=== PATIENT | female | born 1955 | race Asian ===

== ENCOUNTER 2016-12-05 06:28 | Inpatient (IN) | payer SELFPAY ==
[~2016-12-05] VITALS: Ht 160 cm; Wt 74.8 kg
[2016-12-05] VITALS (10 sets, daily range): BP systolic 100–118; BP diastolic 49–62; PULSE 80–111; RESP 16–18; TEMP 96.7–99; O2SAT 95–100
[2016-12-05] MEDS ORDERED: AMLO10TA2 PO (06:39)
[2016-12-05] MEDS ORDERED: LISI10TA3 PO (06:39)
--- NOTE | 2016-12-05 07:36 | PD ---
HPI Chief Complaint: GI Complaint Time Seen by Provider: 07:14 Travel History International Travel<30 days: No Contact w/Intl Traveler<30days: No Traveled to known affect area: No History of Present Illness HPI 61-year-old female came to the emergency room with history of epigastric pain for past 1 week. For past 3 days she has noticed dark color stool. She has had 4 or 5 episodes of such. She has been lightheaded and dizzy as well. Her daughter who is an employee here convinced her to come to the emergency room to be checked out. Patient recently immigrated from [facility] in 2016. She has never had an endoscopy or colonoscopy done in the past. She did have history of peptic ulcer disease in the past. Patient has history of arthritis and was taking Aleve up until one month ago. Currently she is not on any blood thinners. She told me that her blood pressure is lower than what it usually is. She is awake and answering questions appropriately. PFSH Past Medical History Narrative Medical List of her past medical, surgical, social and family history was reviewed from the nursing note. Diminished Hearing: No Hypertension: Yes Medical other: Yes (STOMACH ULCERS ) Past Surgical History Surgical History: No Previous Surgery Social History Alcohol Use: No Tobacco Use: No Substance Use: No Allergies-Medications (Allergen,Severity, Reaction): Coded Allergies: No Known Allergies (Unverified , 12/05/16) Comments No known drug allergies. Reported Meds & Prescriptions Reported Meds & Active Scripts Active Reported Amlodipine (Amlodipine Besylate) 10 Mg Tab 10 Mg PO DAILY Lisinopril 10 Mg Tab 10 Mg PO DAILY Narrative Medication List of her home medications reviewed from the nursing note. Review of Systems Except as stated in HPI: all other systems reviewed are Neg Physical Exam Narrative GENERAL: Awake, alert, moderate distress SKIN: Focused skin assessment warm/dry. HEAD: Atraumatic. Normocephalic. EYES: Pupils equal and round. No scleral icterus. No injection or drainage. ENT: No nasal bleeding or discharge. Mucous membranes pink and moist. NECK: Trachea midline. No JVD. CARDIOVASCULAR: Regular rate and rhythm. No murmur appreciated. RESPIRATORY: No accessory muscle use. Clear to auscultation. Breath sounds equal bilaterally. GASTROINTESTINAL: Abdomen soft, non-tender, nondistended. Hepatic and splenic margins not palpable. MUSCULOSKELETAL: No obvious deformities. No clubbing. No cyanosis. No edema. NEUROLOGICAL: Awake and alert. No obvious cranial nerve deficits. Motor grossly within normal limits. Normal speech. PSYCHIATRIC: Appropriate mood and affect; insight and judgment normal. Data Data Last Documented VS Vital Signs Date Time Temp Pulse Resp B/P Pulse Ox O2 Delivery O2 Flow Rate FiO2 12/05/16 06:30 97.7 111 18 118/59 100 Room Air Orders Electrocardiogram (12/05/16 06:47) Complete Blood Count With Diff (12/05/16 07:41) Comprehensive Metabolic Panel (12/05/16 07:41) Lipase (12/05/16 07:41) Prothrombin Time / Inr (Pt) (12/05/16 07:41) Urinalysis - C+S If Indicated (12/05/16 07:41) Iv Access Insert/Monitor (12/05/16 07:41) Ecg Monitoring (12/05/16 07:41) Oximetry (12/05/16 07:41) Morphine Inj (Morphine Inj) (12/05/16 07:45) Ondansetron Inj (Zofran Inj) (12/05/16 07:45) Pantoprazole Inj (Protonix Inj) (12/05/16 07:45) Sodium Chlor 0.9% 1000 Ml Inj (Ns 1000 M (12/05/16 07:41) Sodium Chloride 0.9% Flush (Ns Flush) (12/05/16 07:45) Type And Screen (12/05/16 07:41) Pantoprazole Inj (Protonix Inj) (12/05/16 10:15) Pantoprazole Inj (Protonix Inj) (12/05/16 10:15) Vital Signs (Adult) [id number].Q4H (12/05/16 09:16) Sodium Chloride 0.9% Flush (Ns Flush) (12/05/16 09:30) Sodium Chloride 0.9% Flush (Ns Flush) (12/05/16 09:30) Admit Order (Ed Use Only) (12/05/16 09:04) Labs Laboratory Tests Test 12/05/16 12/05/16 07:00 09:00 White Blood Count 16.6 TH/MM3 Red Blood Count 3.49 MIL/MM3 Hemoglobin 9.7 GM/DL Hematocrit 29.5 % Mean Corpuscular Volume 84.7 FL Mean Corpuscular Hemoglobin 27.9 PG Mean Corpuscular Hemoglobin 32.9 % Concent Red Cell Distribution Width 14.5 % Platelet Count 319 TH/MM3 Mean Platelet Volume 8.2 FL Neutrophils (%) (Auto) 75.6 % Lymphocytes (%) (Auto) 18.6 % Monocytes (%) (Auto) 4.2 % Eosinophils (%) (Auto) 1.1 % Basophils (%) (Auto) 0.5 % Neutrophils # (Auto) 12.6 TH/MM3 Lymphocytes # (Auto) 3.1 TH/MM3 Monocytes # (Auto) 0.7 TH/MM3 Eosinophils # (Auto) 0.2 TH/MM3 Basophils # (Auto) 0.1 TH/MM3 CBC Comment DIFF FINAL Differential Comment Prothrombin Time 10.4 SEC Prothromb Time International 0.9 RATIO Ratio Sodium Level 143 MEQ/L Potassium Level 3.8 MEQ/L Chloride Level 107 MEQ/L Carbon Dioxide Level 26.4 MEQ/L Anion Gap 10 MEQ/L Blood Urea Nitrogen 47 MG/DL Creatinine 0.98 MG/DL Estimat Glomerular Filtration 57 ML/MIN Rate Random Glucose 128 MG/DL Calcium Level 9.0 MG/DL Total Bilirubin 0.3 MG/DL Aspartate Amino Transf 12 U/L (AST/SGOT) Alanine Aminotransferase 24 U/L (ALT/SGPT) Alkaline Phosphatase 52 U/L Total Protein 7.8 GM/DL Albumin 3.7 GM/DL Lipase 122 U/L Blood Type O POSITIVE Antibody Screen NEGATIVE Blood Bank Comment Urine Color LIGHT-YELLOW Urine Turbidity CLEAR Urine pH 5.5 Urine Specific [place] 1.013 Urine Protein NEG mg/dL Urine Glucose (UA) NEG mg/dL Urine Ketones NEG mg/dL Urine Occult Blood NEG Urine Nitrite NEG Urine Bilirubin NEG Urine Urobilinogen LESS THAN 2.0 MG/DL Urine Leukocyte Esterase MOD Urine RBC 1 /hpf Urine WBC 7 /hpf Urine Squamous Epithelial 1 /hpf Cells Microscopic Urinalysis Comment CULT NOT INDICATED MDM Medical Decision Making Medical Screen Exam Complete: Yes Emergency Medical Condition: Yes Medical Record Reviewed: Yes Interpretation(s) Twelve-lead EKG was reviewed by me. Normal sinus rhythm, normal axis, tachycardia, nonspecific ST-T wave changes. Heart rate of 105 bpm. Differential Diagnosis Upper GI bleed, lower GI bleed, acute pancreatitis Narrative Course 9 AM patient was given IV Protonix bolus and a drip. She was medicated for pain. Blood test results of back and while H&H is low and she doesn't require to be transfused yet. I admitted the patient to the family medicine team for endoscopy and possibly colonoscopy. Patient is aware of this plan and okay with it. Critical Care Narrative Aggregate critical care time was 30 minutes. Time to perform other separately billable procedures was not included in the critical care time. My time did not include minutes spent treating any other patients simultaneously or on activities that did not directly contribute to the patient's treatment. The services I provided to this patient were to treat and/or prevent clinically significant deterioration that could result in: GI bleed, Protonix drip I provided critical care services requiring my management, as noted below: Chart data review, documentation time, medication orders and management, vital sign assessments/reviewing monitor data, ordering and reviewing lab tests, ordering and interpreting/reviewing x-rays and diagnostic studies, care of the patient and discussion of the patient with the admitting physicians. Procedures EKG Prior to Arrival: No HemaPrompt Point of Care Internal Pos. & Neg. Controls: Passed Fecal Specimen Occult Blood: Positive Diagnosis Primary Impression: GI bleed Qualified Code: K92.2 - Gastrointestinal hemorrhage, unspecified gastrointestinal hemorrhage type Additional Impression: Epigastric pain Admitting Information Admitting Physician Requests: Admit Scripts Pantoprazole 40 Mg Tab40 Mg PO DAILY #30 TAB Ref 0 Prov:Deacon Jolley MD R2 12/07/16 Diamond Gibson MD Dec 05, 2016 07:36
[2016-12-05] MEDS ORDERED: SODIUM CHLOR 0.9% 1000 ML INJ 1,000 ML IV SCH (07:41)
[2016-12-05] MEDS ORDERED: ONDANSETRON HCL 4 MG/2 ML VIAL IVP ONE (07:45)
[2016-12-05] MEDS ORDERED: PANTOPRAZOLE SODIUM 40 MG VIAL IVP ONE (07:45)
[2016-12-05] MEDS ORDERED: SODIUM CHLORIDE 0.9% FLUSH 10 ML FLUSH IV FLUSH PRN ×3 (07:45→09:45)
[2016-12-05] MEDS ORDERED: MORPHINE SULFATE 4 MG/ML INJ IV PUSH ONE (07:45)
[2016-12-05 08:16] LABS: AUTOMATED NEUTROPHIL # 12.6 TH/MM3 (1.8-7.7); BASOPHIL # 0.1 TH/MM3 (0-0.2); BASOPHIL % 0.5 % (0.0-2.0); EOSINOPHIL # 0.2 TH/MM3 (0-0.4); EOSINOPHIL % 1.1 % (0.0-4.0); HEMATOCRIT 29.5 % (35.0-46.0); HEMO FLAGS DIFF FINAL; LYMPH % 18.6 % (9.0-44.0); LYMPHOCYTE # 3.1 TH/MM3 (1.0-4.8); MEAN CELL VOLUME 84.7 FL (80.0-100.0); MEAN CORPUSCULAR HEMOGLOBIN 27.9 PG (27.0-34.0); MEAN CORPUSCULAR HGB CONC 32.9 % (32.0-36.0); MONO % 4.2 % (0.0-8.0); NEUT % 75.6 % (16.0-70.0); PLATELET COUNT 319 TH/MM3 (150-450); RED BLOOD COUNT 3.49 MIL/MM3 (4.00-5.30); RED CELL DISTRIBUTION WIDTH 14.5 % (11.6-17.2); WHITE BLOOD COUNT 16.6 TH/MM3 (4.0-11.0)
[2016-12-05 08:23] LABS: INTERNATIONAL NORMALIZED RATIO 0.9 RATIO; PROTHROMBIN TIME - PATIENT 10.4 SEC (9.8-11.6)
[2016-12-05 08:33] LABS: ALT (GPT) 24 U/L (10-53); ANION GAP 10 MEQ/L (5-15); AST (GOT) 12 U/L (15-37); BICARBONATE 26.4 MEQ/L (21.0-32.0); BLOOD UREA NITROGEN 47 MG/DL (7-18); CHLORIDE 107 MEQ/L (98-107); GLOMERULAR FILTRATION RATE 57 ML/MIN (>89); POTASSIUM 3.8 MEQ/L (3.5-5.1); SODIUM (NA) 143 MEQ/L (136-145)
[2016-12-05 08:35] LABS: ALKALINE PHOSPHATASE 52 U/L (45-117); TOTAL BILIRUBIN ADULT 0.3 MG/DL (0.2-1.0)
--- NOTE | 2016-12-05 09:18 | HHI.HP ---
HPI Service Family Medicine Primary Care Physician Non-Staff Admission Diagnosis GI bleed, abdominal pain, leukocytosis Diagnoses: International Travel<30 Days: No Contact w/Intl Traveler<30days: No Known Affected Area: No History of Present Illness Patient is a pleasant 61-year-old female, with a past medical history of hypertension and peptic ulcer disease, presenting with generalized weakness and fatigue for 1 week. HPI: Approximately 1 week ago, she experienced generalized weakness. 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 On 12/05, at 4 AM she called her daughter because she was feeling lightheaded and extremely dizzy. She also notices over the past 3 days, that she has been having black, tarry stools, that are formed. She also feels nauseous, but denies any vomiting. She denies bright red blood in her stool. She denies any chest pain currently. She denies any shortness of breath. She has not fallen at home. She has been taking Aleve, large amounts every day ( she bought a big bottle at [employer] and takes them throughout the day) for arthritic pain. She has a history of peptic ulcer disease, approximately 40 years ago, she did have an upper GI bleed. Currently, she is not having any abdominal pain. She denies any fevers or chills. She is not on any blood thinners. (Deacon Jolley MD R2) Review of Systems Constitutional: COMPLAINS OF: Fatigue, Chills, Dizziness, Change in appetite, DENIES: Diaphoretic episodes, Fever Eyes: DENIES: Blurred vision, Vision loss, Double Vision Ears, nose, mouth, throat: COMPLAINS OF: Vertigo Respiratory: DENIES: Cough, Sputum production, Shortness of breath Cardiovascular: DENIES: Chest pain, Palpitations, Syncope Gastrointestinal: COMPLAINS OF: Black stools, Nausea, Anorexia, DENIES: Abdominal pain, Constipation, Diarrhea, Vomiting, Difficulty Swallowing Genitourinary: DENIES: Urgency, Dysuria Integumentary: COMPLAINS OF: Rash (left upper quadrant red nodule on abdomen) ( Deacon Jolley MD R2) Past Family Social History Past Medical History Essential hypertension Peptic ulcer disease Past Surgical History Denies any previous surgeries (Deacon Jolley MD R2) Allergies: Coded Allergies: No Known Allergies (Unverified , 12/05/16) Family History Denies a family history of stomach cancer, colon cancer, or inflammatory bowel disease. Social History Lives with her . Her daughter works in [employer]. She does not drink alcohol, smoke tobacco, or do illicit drugs. Originally from the [facility]. Limited [place] proficiency. (Deacon Jolley MD R2) Physical Exam Vital Signs Vital Signs Date Time Temp Pulse Resp B/P Pulse Ox O2 Delivery O2 Flow Rate FiO2 12/05/16 06:30 97.7 111 18 118/59 100 Room Air Physical Exam GENERAL: REsting comfortably appears tired. SKIN: No rashes, ecchymoses or lesions. Cool and dry. Small erythematous nodule on LUQ of abdomen, not draining. HEAD: Atraumatic. Normocephalic. No temporal or scalp tenderness. EYES: Pupils equal round and reactive. +Scleral palor ENT: Nose without bleeding, purulent drainage or septal hematoma. Throat without erythema, tonsillar hypertrophy or exudate. Uvula midline. Airway patent. NECK: Trachea midline. No JVD or lymphadenopathy. Supple, nontender, no meningeal signs. CARDIOVASCULAR: Regular rate and rhythm without murmurs, gallops, or rubs. RESPIRATORY: Clear to auscultation. Breath sounds equal bilaterally. No wheezes , rales, or rhonchi. GASTROINTESTINAL: Abdomen soft, non-tender, slightly distended. No guarding. MUSCULOSKELETAL: Extremities without clubbing, cyanosis, or edema. NEUROLOGICAL: Awake and alert. Cranial nerves II through XII intact. Laboratory Laboratory Tests Test 12/05/16 07:00 White Blood Count 16.6 Red Blood Count 3.49 Hemoglobin 9.7 Hematocrit 29.5 Mean Corpuscular Volume 84.7 Mean Corpuscular Hemoglobin 27.9 Mean Corpuscular Hemoglobin 32.9 Concent Red Cell Distribution Width 14.5 Platelet Count 319 Mean Platelet Volume 8.2 Neutrophils (%) (Auto) 75.6 Lymphocytes (%) (Auto) 18.6 Monocytes (%) (Auto) 4.2 Eosinophils (%) (Auto) 1.1 Basophils (%) (Auto) 0.5 Neutrophils # (Auto) 12.6 Lymphocytes # (Auto) 3.1 Monocytes # (Auto) 0.7 Eosinophils # (Auto) 0.2 Basophils # (Auto) 0.1 CBC Comment DIFF FINAL Differential Comment Prothrombin Time 10.4 Prothromb Time International 0.9 Ratio Sodium Level 143 Potassium Level 3.8 Chloride Level 107 Carbon Dioxide Level 26.4 Anion Gap 10 Blood Urea Nitrogen 47 Creatinine 0.98 Estimat Glomerular Filtration 57 Rate Random Glucose 128 Calcium Level 9.0 Total Bilirubin 0.3 Aspartate Amino Transf 12 (AST/SGOT) Alanine Aminotransferase 24 (ALT/SGPT) Alkaline Phosphatase 52 Total Protein 7.8 Albumin 3.7 Lipase 122 Blood Type O POSITIVE Antibody Screen NEGATIVE Blood Bank Comment (Deacon Jolley MD R2) Result Diagram: 12/05/16 0712/05/16 07 Septic Shock Reassessment Heart: Regular rate and rhythm Lungs: Clear Skin: Warm, Dry Capillary Refill: Sluggish (capillary refill greater than 4 seconds.) (Deacon Jolley MD R2) Assessment and Plan Assessment and Plan Very pleasant 61-year-old female, presenting with 3 days of epigastric pain, black stools, and feeling lightheaded. Hemoccult positive in ED. Will be admitted for possible upper GI bleed. Code Status Full Code. (Deacon Jolley MD R2) Attending Attestation The patient has been seen and examined. The chart and all resident notes have been reviewed. I agree that inpatient care is appropriate and that a two midnight stay is expected for the reasons documented in the resident history and physical. I have discussed this with the resident and certify the resident s order for inpatient admission. Patient seen and examined. Case reviewed and discussed Please refer to resident H&P for further details regarding HPI, ROS, PMH, SurgHx , Fh and SocHx All systems reviewed and negative except as stated in HPI. In summary, patient is a 61yoF with a history of HTN presenting with a week history of weakness and black stools. She is seen in her hospital bed with daughter and at the bedside. She denies any abdominal pain, but reports continued lightheadedness when she gets up to use the bathroom. Hemoccult + in ED. GENERAL: wdwn female, resting in bed SKIN: Warm and dry. Pallor, no rashes HEAD: Normocephalic. AT EYES: No scleral icterus. No injection or drainage. +conjunctival pallor ENT: Op clear. MM slightly dry NECK: Supple, trachea midline. No JVD or lymphadenopathy. CARDIOVASCULAR: Tachycardic rate to low 100s and reg rhythm without audible murmurs, gallops, or rubs. RESPIRATORY: Breath sounds equal bilaterally with intermittent exp wheezing. No accessory muscle use. GASTROINTESTINAL: Abdomen soft, non-tender, nondistended. normal active BS MUSCULOSKELETAL: No cyanosis, or edema. No calf tenderness BACK: Nontender without obvious deformity. No CVA tenderness. NEURO: Awake and alert. Normal speech. CN grossly intact. MAEW. A/P: 61yo F with: Acute blood loss anemia GIB Symptomatic anemia Leukocytosis NSAID use HTN Weakness LE edema Hyperglycemia Serial hgb GI consult Protonix gtt Transfuse prbcs as needed IVF CXR Duonebs 2D echo SCDs - chemical proph contraindicated Patient seen and examined. Case reviewed and discussed Agree with plan of care as discussed with me and documented in the resident note. (Sarah Lux MD) Problem List: (1) GI bleed Status: Acute Plan: Given large amounts of NSAID use recently, epigastric abdominal pain, history of PUD, and positive Hemoccults with black stools, suspect upper GI bleed. Plan: 2 large-bore IVs Maintenance IV fluids NS 100 mL's per hour Serial H&H every 6 hours, transfuse if < 7.0. Protonix gtt Consult gastroenterology, we appreciate their assistance. (2) Hypertension Status: Acute Plan: Hold antihypertensives, amlodipine and lisinopril. (3) Nutrition, metabolism, and development symptoms Status: Acute Plan: Nutrition: Nothing by mouth until evaluated by GI Electrolytes: At goal DVT prophylaxis: SCDs We'll discuss with Dr. Lux and Dr. Mayorga. (Deacon Jolley MD R2) Physician Certification 2 Midnight Certification Type: Admission for Inpatient Services Order for Inpatient Services The services are ordered in accordance with Medicare regulations or non- Medicare payer requirements, as applicable. In the case of services not specified as inpatient-only, they are appropriately provided as inpatient services in accordance with the 2-midnight benchmark. Estimated LOS (days): 2 2 days is the estimated time the patient will need to remain in the hospital, assuming treatment plan goals are met and no additional complications. Post-Hospital Plan: Home (Deacon Jolley MD R2) Problem Qualifiers (1) GI bleed: Qualified Code: K92.2 - Gastrointestinal hemorrhage, unspecified gastrointestinal hemorrhage type Deacon Jolley MD R2 Dec 05, 2016 09:18 Sarah Lux MD Dec 05, 2016 16:46
[2016-12-05 09:32] LABS: BLOOD, URINE NEG (NEG); COMMENT (UR) CULT NOT INDICATED; CULTURE IF INDICATED CULT NOT INDICATED; GLUCOSE,URINE NEG (NEG); KETONE, URINE NEG (NEG); NITRITE,URINE NEG (NEG); PH, URINE 5.5 (5.0-8.5); SQUAMOUS EPITHELIAL CELL URINE 1 /hpf (0-5); URINE COLOR LIGHT-YELLOW (YELLW/STRAW)
[2016-12-05] MEDS ORDERED: ONDANSETRON HCL 4 MG/2 ML VIAL IV PRN (09:45)
[2016-12-05] MEDS ORDERED: SODIUM CHLORIDE 0.9% FLUSH 10 ML FLUSH IV FLUSH SCH (09:45)
[2016-12-05] MEDS ORDERED: NALOXONE HCL 0.4 MG/ML AMP IV PRN (09:45)
[2016-12-05] MEDS ORDERED: MORPHINE SULFATE 4 MG/ML INJ IV PRN (09:45)
[2016-12-05] MEDS: PANTOPRAZOLE INJ 80 MG in SODIUM CHLORIDE 0.9% INJ 100 ML IV SCH ×2 (10:02→21:01)
[2016-12-05] MEDS ORDERED: PANTOPRAZOLE INJ 80 MG in SODIUM CHLORIDE 0.9% INJ 35 ML IV ONE (10:15)
[2016-12-05] MEDS: SODIUM CHLOR 0.9% 1000 ML INJ 1,000 ML IV SCH ×2 (10:26→21:05)
[2016-12-05] MEDS: SODIUM CHLORIDE 0.9% FLUSH 10 ML FLUSH IV FLUSH SCH ×2 (10:27→21:00)
--- NOTE | 2016-12-05 11:52 | PD.CONS ---
HPI History of Present Illness This is a 61 year old female w/ hx ulcers, distant hx GIB 4 y ago who presented with anemia and black stools. 3 days ago she started feeling dizzy when she stood up and ahving black stools. Her Hgb was 9.7 on admission. Admits nausea. She has been taking Aleve daily for 2 months. She thinks she had EGD last year but cannot remember details. She had episode of black stool, coffee ground emesis 4 years ago and her doctor told her she had ulcers. Not on blood thinners. She denies abd pain, vomiting. (Kay Glass) PFSH Past Medical History HTN ulcers? Past Surgical History removal cyst left breast (Kay Glass) Coded Allergies: No Known Allergies (Unverified , 12/05/16) Family History HTN Social History no ETOH, tobacco, or illicit drugs (Kay Glass) Review of Systems Constitutional: COMPLAINS OF: Dizziness, DENIES: Fever Eyes: DENIES: Blurred vision Ears, nose, mouth, throat: DENIES: Hearing loss Cardiovascular: DENIES: Chest pain Gastrointestinal: COMPLAINS OF: Black stools, Nausea, DENIES: Abdominal pain, Bloody stools, Constipation, Diarrhea, Vomiting, Hematemesis Musculoskeletal: DENIES: Muscle aches Hematologic/lymphatic: DENIES: Bruising Neurologic: DENIES: Abnormal gait Psychiatric: DENIES: Confusion (Kay Glass) GI Exam Vitals I&O Vital Signs Date Time Temp Pulse Resp B/P Pulse Ox O2 Delivery O2 Flow Rate FiO2 12/05/16 10:52 96.7 95 16 113/60 95 12/05/16 09:26 105 18 116/57 98 Room Air 12/05/16 06:30 97.7 111 18 118/59 100 Room Air Laboratory Test 12/05/16 12/05/16 07:00 09:00 White Blood Count 16.6 TH/MM3 Red Blood Count 3.49 MIL/MM3 Hemoglobin 9.7 GM/DL Hematocrit 29.5 % Mean Corpuscular Volume 84.7 FL Mean Corpuscular Hemoglobin 27.9 PG Mean Corpuscular Hemoglobin 32.9 % Concent Red Cell Distribution Width 14.5 % Platelet Count 319 TH/MM3 Mean Platelet Volume 8.2 FL Neutrophils (%) (Auto) 75.6 % Lymphocytes (%) (Auto) 18.6 % Monocytes (%) (Auto) 4.2 % Eosinophils (%) (Auto) 1.1 % Basophils (%) (Auto) 0.5 % Neutrophils # (Auto) 12.6 TH/MM3 Lymphocytes # (Auto) 3.1 TH/MM3 Monocytes # (Auto) 0.7 TH/MM3 Eosinophils # (Auto) 0.2 TH/MM3 Basophils # (Auto) 0.1 TH/MM3 CBC Comment DIFF FINAL Differential Comment Prothrombin Time 10.4 SEC Prothromb Time International 0.9 RATIO Ratio Sodium Level 143 MEQ/L Potassium Level 3.8 MEQ/L Chloride Level 107 MEQ/L Carbon Dioxide Level 26.4 MEQ/L Anion Gap 10 MEQ/L Blood Urea Nitrogen 47 MG/DL Creatinine 0.98 MG/DL Estimat Glomerular Filtration 57 ML/MIN Rate Random Glucose 128 MG/DL Calcium Level 9.0 MG/DL Total Bilirubin 0.3 MG/DL Aspartate Amino Transf 12 U/L (AST/SGOT) Alanine Aminotransferase 24 U/L (ALT/SGPT) Alkaline Phosphatase 52 U/L Total Protein 7.8 GM/DL Albumin 3.7 GM/DL Lipase 122 U/L Blood Type O POSITIVE Antibody Screen NEGATIVE Blood Bank Comment Urine Color LIGHT-YELLOW Urine Turbidity CLEAR Urine pH 5.5 Urine Specific [place] 1.013 Urine Protein NEG mg/dL Urine Glucose (UA) NEG mg/dL Urine Ketones NEG mg/dL Urine Occult Blood NEG Urine Nitrite NEG Urine Bilirubin NEG Urine Urobilinogen LESS THAN 2.0 MG/DL Urine Leukocyte Esterase MOD Urine RBC 1 /hpf Urine WBC 7 /hpf Urine Squamous Epithelial 1 /hpf Cells Microscopic Urinalysis Comment CULT NOT INDICATED Physical Examination HEENT: EOMI; normocephalic; atraumatic; no jaundice. CHEST: CTA CARDIAC: RRR, + murmur ABDOMEN: Soft, nondistended, nontender; no hepatosplenomegaly; bowel sounds are present in all four quadrants. EXTREMITIES: No clubbing, cyanosis, or edema. SKIN: Normal; no rash; no jaundice. SURGICAL RN: No focal deficits; alert and oriented times three. (Kay Glass) Assessment and Plan Plan ASSESSMENT - melena - 3 d ago onset black stool, heme pos - anemia - hgb 9.7 on admission. hx ulcers, UGIB PLAN - EGD today - obtain consents - NPO - monitor HH - further recommendations to follow - avoid NSAIDs This pt seen by myself and Dr Hanson and this note is written on his behalf ( Kay Glass) Physician Comments Seen and examined, plan as above, will proceed with EGD today. Risk, benefit and possible complications discussed with the patient. Further recommendations to follow. (Syd Hanson MD) Kay Glass Dec 05, 2016 11:52 Syd Hanson MD Dec 05, 2016 12:46
[2016-12-05] MEDS ORDERED: PROPOFOL 200 MG/20 ML AMP IV ONE (12:34)
--- NOTE | 2016-12-05 13:01 | GIPROC ---
[facility] [address] [facility]. [facility], [address] EGD PROCEDURE REPORT EXAM DATE: 12/05/2016 PATIENT NAME: Micaela Aviles MR #: [id number] BIRTHDATE: 1955 ATTENDING: Syd Hanson MD ORDER #: [id number] FIELD SALES MANAGER: Jazzmine Lofton and Brianna Meadows STATUS: inpatient INDICATIONS: The patient is a 61 yr old female here for an EGD due to hematemesis PROCEDURE PERFORMED: EGD, diagnostic MEDICATIONS: None and Per Anesthesia. TOPICAL ANESTHETIC: none CONSENT: The patient understands the risks and benefits of the procedure and understands that these risks include, but are not limited to: sedation, allergic reaction, infection, perforation and/or bleeding. Alternative means of evaluation and treatment include, among others: physical exam, x-rays, and/or surgical intervention. The patient elects to proceed with this endoscopic procedure. medical equipment was checked for proper function. Hand hygiene and appropriate measures for infection prevention was taken. After the risks, benefits and alternatives of the procedure were thoroughly explained, Informed consent was verified, confirmed and timeout was successfully executed by the treatment team. The patient was anesthetized with topical anesthesia and the Pentax [id number] endoscope was introduced through the mouth and advanced to the second portion of the duodenum. Retroflexion was performed and was normal The gastroscope was then slowly withdrawn and removed. ESOPHAGUS: The esophagus was otherwise normal. STOMACH: A medium sized non-bleeding and round ulcer with a red spot was found in the gastric antrum. DUODENUM: The duodenal mucosa appeared normal in the bulb and second portion of the duodenum. ADVERSE EVENTS: There were no complications. IMPRESSIONS: 1. The esophagus was otherwise normal 2. Medium sized ulcer was found in the gastric antrum, procedure terminated abruptly from O2 desaturation. 3. Normal duodenal mucosa in the bulb and second portion of the duodenum 4. Retroflexion was performed and was normal RECOMMENDATIONS: 1. Continue PPI 2. Avoid NSAIDS 3. HP stool for antigen 4. Follow HH 5. Repeat EGD in few days with screening Colonoscopy PATIENT CONDITION: stable DISPOSITION: Observation REPEAT EXAM: Return 3 days EGD for repeat and possiblely combined with screening colonoscopy. Syd Hanson MD eSigned: Syd Hanson MD 12/05/2016 1:01 PM cc: PATIENT NAME: Micaela Aviles MR#: [id number]
[2016-12-05 15:36] LABS: HEMATOCRIT 22.5 % (35.0-46.0); REVIEW FLAG FINAL
[2016-12-05] MEDS ORDERED: FUROSEMIDE 20 MG/2 ML VIAL IV SCH (16:15)
--- NOTE | 2016-12-05 17:03 | RADRPT ---
EXAM DATE/TIME: 12/05/2016 16:38 [facility] COMPARISON: No previous studies available for comparison. INDICATIONS : Shortness of breath. MEDICAL HISTORY : None. SURGICAL HISTORY : None. ENCOUNTER: Initial ACUITY: 1 day PAIN SCORE: 0/10 LOCATION: chest FINDINGS: A single view of the chest demonstrates the lungs to be symmetrically aerated without evidence of mas s, infiltrate or effusion. The cardiomediastinal contours are unremarkable. Osseous structures are intact. CONCLUSION: No acute disease. Tim Singh MD FACR on December 05, 2016 at 17:01 Board Certified Radiologist. This report was verified electronically.
--- NOTE | 2016-12-05 17:17 | EKG ---
Date Performed: 12/05/2016 Time Performed: 06:47:28 PTAGE: 61 years EKG: SINUS TACHYCARDIA ABNORMAL RHYTHM ECG NO PREVIOUS TRACING DOCTOR: [place] Interpretating Date/Time 12/05/2016 17:16:59
[2016-12-05] MEDS: RESP: ALBUTEROL 2.5 MG/IPRATROPIUM 0.5 MG NEB (SCH) NEB (19:16)
[2016-12-06] VITALS (8 sets, daily range): BP systolic 107–133; BP diastolic 65–72; PULSE 86–96; RESP 16–18; TEMP 96.4–98.6; O2SAT 94–100
[2016-12-06 02:10] LABS: HEMATOCRIT 25.5 % (35.0-46.0); REVIEW FLAG FINAL
[2016-12-06] MEDS: PANTOPRAZOLE INJ 80 MG in SODIUM CHLORIDE 0.9% INJ 100 ML IV SCH (06:16)
[2016-12-06] MEDS: RESP: ALBUTEROL 2.5 MG/IPRATROPIUM 0.5 MG NEB (SCH) NEB ×3 (09:32→20:16)
[2016-12-06] MEDS ORDERED: PNEUMOCOCCAL POLYVALENT INJ 25 MCG/0.5 ML SYR IM ONE (10:00)
[2016-12-06] MEDS: SODIUM CHLOR 0.9% 1000 ML INJ 1,000 ML IV SCH (11:26)
[2016-12-06] MEDS: SODIUM CHLORIDE 0.9% FLUSH 10 ML FLUSH IV FLUSH SCH ×2 (11:30→21:22)
[2016-12-06 12:31] LABS: AUTOMATED NEUTROPHIL # 7.9 TH/MM3 (1.8-7.7); BASOPHIL # 0.1 TH/MM3 (0-0.2); BASOPHIL % 0.8 % (0.0-2.0); EOSINOPHIL # 0.3 TH/MM3 (0-0.4); EOSINOPHIL % 2.2 % (0.0-4.0); HEMATOCRIT 28.4 % (35.0-46.0); HEMO FLAGS DIFF FINAL; LYMPH % 22.7 % (9.0-44.0); LYMPHOCYTE # 2.6 TH/MM3 (1.0-4.8); MEAN CELL VOLUME 85.4 FL (80.0-100.0); MEAN CORPUSCULAR HEMOGLOBIN 28.2 PG (27.0-34.0); MONO % 5.3 % (0.0-8.0); PLATELET COUNT 233 TH/MM3 (150-450); RED BLOOD COUNT 3.33 MIL/MM3 (4.00-5.30); WHITE BLOOD COUNT 11.5 TH/MM3 (4.0-11.0)
--- NOTE | 2016-12-06 12:39 | HHI.FPPN ---
Subjective Remarks Status post transfusion of 1 unit packed red blood cells. No acute events overnight. Afebrile, vital signs stable. Patient had EGD performed yesterday which was abruptly stopped secondary to patient desaturation. Denies any symptoms associated with anemia including dizziness on standing, lightheadedness or palpitations. States she feels much better and is very thankful. (Pratima Mayorga MD R3) Objective Vitals Vital Signs Date Time Temp Pulse Resp B/P Pulse Ox O2 Delivery O2 Flow Rate FiO2 12/06/16 09:34 98 21 12/06/16 07:48 97.4 92 18 122/70 98 12/06/16 04:25 97.5 96 16 107/65 99 12/06/16 01:00 96.4 92 16 122/66 100 12/06/16 01:00 96.4 92 16 122/66 100 12/05/16 23:40 97.4 94 16 110/61 99 12/05/16 21:15 97.8 101 16 100/49 99 12/05/16 21:15 98.1 101 16 100/49 99 12/05/16 20:35 98.1 104 16 105/55 99 12/05/16 20:10 98.1 106 16 105/55 99 12/05/16 19:16 98 21 12/05/16 17:02 99.0 80 16 106/54 100 12/05/16 13:12 100 18 103/65 100 12/05/16 13:02 101 18 111/83 100 12/05/16 12:52 98.4 101 18 101/83 98 I/O 12/05/16 12/05/16 12/05/16 12/06/16 12/06/16 12/06/16 07:00 15:00 23:00 07:00 15:00 23:00 Intake Total 50 ml 999 ml 1431 ml 591 ml Balance 50 ml 999 ml 1431 ml 591 ml Intake Oral 520 ml 60 ml IV Total 479 ml 981 ml 591 ml Packed Cells 390 ml Other 50 ml # Voids 2 2 7 # Bowel Movements 0 0 (Pratima Mayorga MD R3) Result Diagram: 12/06/16 1212 12/05/16 0700 Imaging Last Impressions Chest X-Ray 12/05/16 0000 Signed Impressions: Service Date/Time: Monday, December 05, 2016 16:38 - CONCLUSION: No acute disease. Tim Singh MD FACR (Pratima Mayorga MD R3) A/P Assessment and Plan Very pleasant 61-year-old female, presenting with 3 days of epigastric pain, black stools, and feeling lightheaded. Hemoccult positive in ED. Status post transfusion 1 unit packed red blood cells with symptom resolution and appropriate hemoglobin increase. Discharge Planning Pending EGD/colonoscopy (Pratima Mayorga MD R3) Attending Attestation Patient seen and examined with the resident team. Case reviewed and discussed Agree with plan of care as discussed with me and documented in the resident note. (Sarah Lux MD) Problem List: (1) GI bleed Status: Acute Plan: Source remains unclear. Patient with partial EGD performed that was terminated early secondary to patient desaturation. Nonbleeding moderate sized ulcer found in the gastric antrum. Patient status post transfusion of 1 unit packed red blood cells with appropriate response and resolution of clinical symptoms. Protonix IV CBC in the morning Gastroenterology consulted, appreciate recommendations regarding colonoscopy/ EGD Maintain on clear liquid diet in preparation for scope Transfuse when necessary (2) Hypertension Status: Acute Plan: Patient with history of hypertension, home medications of lisinopril and amlodipine. Currently normotensive. Holding home medication at this time. (3) Nutrition, metabolism, and development symptoms Status: Acute Plan: Nutrition: Clear liquid diet Electrolytes: Replete when necessary Fluids: NS at 100 cc/hour DVT prophylaxis: SCDs, chemical prophylaxis not indicated secondary to GI bleed (Pratima Mayorga MD R3) Problem Qualifiers (1) GI bleed: Qualified Code: K92.2 - Gastrointestinal hemorrhage, unspecified gastrointestinal hemorrhage type Pratima Mayorga MD R3 Dec 06, 2016 12:39 Sarah Lux MD Dec 06, 2016 14:26
--- NOTE | 2016-12-06 12:41 | ECHRPT ---
Indication: Shortness of breath CONCLUSIONS The left ventricular systolic function is normal with an estimated ejection fraction in the range of 55-60%. Normal left ventricular size. Doppler parameters are consistent with impaired left ventricular relax tion (grade 1 diastolic dysfunction). No regional wall motion abnormalities are present. Wall thickness is measured at the upper limits of normal. Trace mitral valve regurgitation. Cannot rule out a bicuspid aortic valve or trileaflet valve with partially fused commissure. Cannot rule out a bicuspid aortic valve or trileaflet valve with partially fused commissure. Mild thickening of the aortic valve leaflets. There is trace tricuspid valve regurgitation. The pulmonary valve is not well visualized. The inferior vena cava (IVC) is normal in size. BP: 103 / 65 HR: 69 Rhythm: Sinus MEASUREMENTS (Male / Female) Normal Values Technical Quality:Fair 2D ECHO LV Diastolic Diameter PLAX 3.7 cm 4.2 - 5.9 / 3.9 - 5.3 cm LV Systolic Diameter PLAX 2.9 cm IVS Diastolic Thickness 1.1 cm 0.6 - 1.0 / 0.6 - 0.9 cm LVPW Diastolic Thickness 1.1 cm 0.6 - 1.0 / 0.6 - 0.9 cm LV Relative Wall Thickness 0.6 LVOT Diameter 1.9 cm Aortic Root Diameter 2.9 cm LA Systolic Diameter LX 3.0 cm 3.0 - 4.0 / 2.7 - 3.8 cm M-MODE AV Cusp Separation MM 1.7 cm DOPPLER AV Peak Velocity 197.0 cm/s AV Peak Gradient 15.5 mmHg AV Mean Gradient 8.0 mmHg AV Velocity Time Integral 35.5 cm LVOT Peak Velocity 129.0 cm/s LVOT Peak Gradient 6.7 mmHg LVOT Velocity Time Integral 24.1 cm LVOT Cardiac Index 2543.5 cm/minm AV Area Cont Eq vti 1.9 cm AV Area Cont Eq pk 1.9 cm Mitral E Point Velocity 95.8 cm/s Mitral A Point Velocity 108.0 cm/s Mitral E to A Ratio 0.9 LV E' Lateral Velocity 10.9 cm/s Mitral E to LV E' Lateral Ratio 8.8 LV E' Septal Velocity 7.4 cm/s Mitral E to LV E' Septal Ratio 12.9 TR Peak Velocity 280.0 cm/s TR Peak Gradient 31.4 mmHg PV Peak Velocity 105.0 cm/s PV Peak Gradient 4.4 mmHg FINDINGS LEFT VENTRICLE The left ventricular systolic function is normal with an estimated ejection fraction in the range of 55-60%. Normal left ventricular size. Doppler parameters are consistent with impaired left ventricular relax tion (grade 1 diastolic dysfunction). No regional wall motion abnormalities are present. Wall thickness is measured at the upper limits of normal. RIGHT VENTRICLE Normal right ventricular size and systolic function. LEFT ATRIUM The left atrial size is normal. RIGHT ATRIUM The right atrial size is normal. ATRIAL SEPTUM Normal atrial septal thickness without atrial level shunting by limited color doppler interrogation. AORTA The aortic root and proximal ascending aorta are normal in size on limited imaging. MITRAL VALVE Structurally normal mitral valve. No mitral valve stenosis or regurgitation. Trace mitral valve regurgitation. AORTIC VALVE Cannot rule out a bicuspid aortic valve or trileaflet valve with partially fused commissure. Cannot rule out a bicuspid aortic valve or trileaflet valve with partially fused commissure. Mild thickening of the aortic valve leaflets. TRICUSPID VALVE Structurally normal tricuspid valve. There is trace tricuspid valve regurgitation. PULMONARY VALVE The pulmonary valve is not well visualized. VESSELS The inferior vena cava (IVC) is normal in size. PERICARDIUM No pericardial effusion. Garfield Tadeo MD (Electronically Signed) Final Date:06 December 2016 12:40
[2016-12-06 12:51] LABS: ALKALINE PHOSPHATASE 41 U/L (45-117); ALT (GPT) 21 U/L (10-53); ANION GAP 12 MEQ/L (5-15); AST (GOT) 15 U/L (15-37); BICARBONATE 24.4 MEQ/L (21.0-32.0); BLOOD UREA NITROGEN 15 MG/DL (7-18); CHLORIDE 110 MEQ/L (98-107); GLOMERULAR FILTRATION RATE 70 ML/MIN (>89); SODIUM (NA) 146 MEQ/L (136-145); TOTAL BILIRUBIN ADULT 0.4 MG/DL (0.2-1.0)
--- NOTE | 2016-12-06 13:12 | HHI.GIFU ---
Subjective Remarks Patient is resting in bed, denies bleeding, nausea, vomiting or abd pain. ( Blanca Billings) Objective Vitals I&O Vital Signs Date Time Temp Pulse Resp B/P Pulse Ox O2 Delivery O2 Flow Rate FiO2 12/06/16 09:34 98 21 12/06/16 07:48 97.4 92 18 122/70 98 12/06/16 04:25 97.5 96 16 107/65 99 12/06/16 01:00 96.4 92 16 122/66 100 12/06/16 01:00 96.4 92 16 122/66 100 12/05/16 23:40 97.4 94 16 110/61 99 12/05/16 21:15 97.8 101 16 100/49 99 12/05/16 21:15 98.1 101 16 100/49 99 12/05/16 20:35 98.1 104 16 105/55 99 12/05/16 20:10 98.1 106 16 105/55 99 12/05/16 19:16 98 21 12/05/16 17:02 99.0 80 16 106/54 100 12/05/16 13:12 100 18 103/65 100 I/O 12/05/16 12/05/16 12/05/16 12/06/16 12/06/16 12/06/16 07:00 15:00 23:00 07:00 15:00 23:00 Intake Total 50 ml 999 ml 1431 ml 591 ml Balance 50 ml 999 ml 1431 ml 591 ml Intake Oral 520 ml 60 ml IV Total 479 ml 981 ml 591 ml Packed Cells 390 ml Other 50 ml # Voids 2 2 7 # Bowel Movements 0 0 Laboratory Laboratory Tests Test 12/05/16 12/05/16 12/06/16 12/06/16 14:35 16:05 01:38 12:12 Hemoglobin 7.4 8.6 9.4 Hematocrit 22.5 25.5 28.4 Blood Type O POSITIVE Crossmatch Leukocyte-Reduced Red Blood Cells Blood Bank Comment White Blood Count 11.5 Red Blood Count 3.33 Mean Corpuscular Volume 85.4 Mean Corpuscular Hemoglobin 28.2 Mean Corpuscular Hemoglobin 33.0 Concent Red Cell Distribution Width 15.0 Platelet Count 233 Mean Platelet Volume 7.6 Neutrophils (%) (Auto) 69.0 Lymphocytes (%) (Auto) 22.7 Monocytes (%) (Auto) 5.3 Eosinophils (%) (Auto) 2.2 Basophils (%) (Auto) 0.8 Neutrophils # (Auto) 7.9 Lymphocytes # (Auto) 2.6 Monocytes # (Auto) 0.6 Eosinophils # (Auto) 0.3 Basophils # (Auto) 0.1 CBC Comment DIFF FINAL Differential Comment Hematology Comments Imaging Last Impressions Chest X-Ray 12/05/16 0000 Signed Impressions: Service Date/Time: Monday, December 05, 2016 16:38 - CONCLUSION: No acute disease. Tim Singh MD FACR Physical Exam HEENT: normocephalic; atraumatic; no jaundice. NECK: Neck is supple, no JVD, no lymphadenopathy. CHEST: Chest is clear to auscultation and percussion. CARDIAC: Regular rate and rhythm with no murmur gallop or rubs. ABDOMEN: Soft, nondistended, nontender; no hepatosplenomegaly; bowel sounds are present in all four quadrants. EXTREMITIES: No clubbing, cyanosis, or edema. SKIN: Normal; no rash; no jaundice. MUD JACK OPERATOR: No focal deficits; alert and oriented times three. (Blanca Billings) Assessment and Plan Plan ASSESSMENT - melena/ heme (+) stools, acute onset of melena- S/P EGD (12/05/16) --->Medium sized ulcer was found in the gastric antrum, procedure terminated abruptly from O2 desaturation. - anemia - hgb 9.4 stable s/p one unit of blood. no more bleeding PLAN - Okay to DC home on PPI - F/u with gi post discharge - EGD/colonoscopy as an op, case was discussed with daughter on the phone - monitor HH - avoid NSAIDs, reports frequent use of Advil This pt seen by myself and Dr Rubio and this note is written on his behalf ( Blanca Billings) Physician Comments Patient seen and examined Agree with above Continue with current supportive care Monitor labs Okay for discharge from a GI standpoint We will sign off (Leonidas Rubio MD) Blanca Billings Dec 06, 2016 13:12 Leonidas Rubio MD Dec 06, 2016 16:26
[2016-12-06 13:23] LABS: POTASSIUM 3.5 MEQ/L (3.5-5.1)
[2016-12-07 00:16] VITALS: BP 111/61; PULSE 98; RESP 18; TEMP 97.6; O2SAT 98
[2016-12-07] MEDS: SODIUM CHLOR 0.9% 1000 ML INJ 1,000 ML IV SCH ×2 (03:15→09:04)
[2016-12-07 03:38] VITALS: BP 119/67; PULSE 87; RESP 18; TEMP 98.5; O2SAT 97
[2016-12-07 07:03] LABS: AUTOMATED NEUTROPHIL # 6.1 TH/MM3 (1.8-7.7); BASOPHIL # 0.1 TH/MM3 (0-0.2); BASOPHIL % 0.8 % (0.0-2.0); EOSINOPHIL # 0.3 TH/MM3 (0-0.4); EOSINOPHIL % 3.7 % (0.0-4.0); HEMATOCRIT 24.7 % (35.0-46.0); HEMO FLAGS DIFF FINAL; LYMPH % 20.7 % (9.0-44.0); LYMPHOCYTE # 1.8 TH/MM3 (1.0-4.8); MEAN CELL VOLUME 85.3 FL (80.0-100.0); MEAN CORPUSCULAR HEMOGLOBIN 29.2 PG (27.0-34.0); MEAN CORPUSCULAR HGB CONC 34.2 % (32.0-36.0); MONO % 5.3 % (0.0-8.0); NEUT % 69.5 % (16.0-70.0); PLATELET COUNT 217 TH/MM3 (150-450); RED BLOOD COUNT 2.89 MIL/MM3 (4.00-5.30); RED CELL DISTRIBUTION WIDTH 14.8 % (11.6-17.2); WHITE BLOOD COUNT 8.8 TH/MM3 (4.0-11.0)
[2016-12-07 07:21] LABS: BICARBONATE 25.9 MEQ/L (21.0-32.0); POTASSIUM 3.6 MEQ/L (3.5-5.1)
[2016-12-07 08:04] VITALS: BP 130/70; PULSE 87; RESP 17; TEMP 96.7; O2SAT 100
[2016-12-07 08:05] VITALS: O2SAT 100
[2016-12-07] MEDS: RESP: ALBUTEROL 2.5 MG/IPRATROPIUM 0.5 MG NEB (SCH) NEB ×2 (08:05→11:51)
[2016-12-07] MEDS: SODIUM CHLORIDE 0.9% FLUSH 10 ML FLUSH IV FLUSH SCH (09:00)
[2016-12-07] MEDS ORDERED: PANTOPRAZOLE SODIUM 40 MG VIAL IV PUSH SCH (09:00)
--- NOTE | 2016-12-07 09:54 | HHI.DCPOC ---
Discharge Care Plan Diagnosis: (1) GI bleed (2) Hypertension Goals to Promote Your Health * To prevent worsening of your condition and complications * To maintain your health at the optimal level Directions to Meet Your Goals Take your medications as prescribed Follow your dietary instruction Follow activity as directed Keep your appointments as scheduled Take your immunizations and boosters as scheduled If your symptoms worsen call your PCP, if no PCP go to Urgent Care Center or Emergency Room Smoking is Dangerous to Your Health. Avoid second hand smoke Call the 24-hour hour crisis hotline for domestic abuse at Deacon Jolley MD R2 Dec 07, 2016 09:54
[2016-12-07] MEDS ORDERED: PANT40TA3 PO (09:56)
--- NOTE | 2016-12-07 09:57 | HHI.FPPN ---
Subjective Remarks Doing well. Stating I'm "not dizzy anymore." No dark or bloody stools. Walking around room. No fevers or chills. BP and pulse have been at goal. Objective Vitals Vital Signs Date Time Temp Pulse Resp B/P Pulse Ox O2 Delivery O2 Flow Rate FiO2 12/07/16 08:05 100 21 12/07/16 08:04 96.7 87 17 130/70 100 12/07/16 03:38 98.5 87 18 119/67 97 12/07/16 00:16 97.6 98 18 111/61 98 12/06/16 20:35 96.7 86 18 133/69 99 12/06/16 20:19 97 21 12/06/16 16:00 98.6 93 18 131/72 97 12/06/16 12:03 97.7 89 18 121/69 94 I/O 12/06/16 12/06/16 12/06/16 12/07/16 12/07/16 12/07/16 07:00 15:00 23:00 07:00 15:00 23:00 Intake Total 1431 ml 1671 ml 360 ml 360 ml Balance 1431 ml 1671 ml 360 ml 360 ml Intake Oral 60 ml 960 ml 360 ml 360 ml IV Total 981 ml 711 ml Packed Cells 390 ml # Voids 7 3 3 3 # Bowel Movements 0 2 1 0 Result Diagram: 12/07/1661612/07/16616 Objective Remarks GENERAL: REsting comfortably. Better color/perfusion in face when compared to admission. SKIN: No rashes, ecchymoses or lesions. Cool and dry. Small erythematous nodule on LUQ of abdomen, not draining. HEAD: Atraumatic. Normocephalic. No temporal or scalp tenderness. EYES: Pupils equal round and reactive. +Scleral palor ENT: Nose without bleeding, purulent drainage or septal hematoma. Throat without erythema, tonsillar hypertrophy or exudate. Uvula midline. Airway patent. NECK: Trachea midline. No JVD or lymphadenopathy. Supple, nontender, no meningeal signs. CARDIOVASCULAR: Regular rate and rhythm without murmurs, gallops, or rubs. RESPIRATORY: Clear to auscultation. Breath sounds equal bilaterally. No wheezes , rales, or rhonchi. GASTROINTESTINAL: Abdomen soft, non-tender, slightly distended. No guarding. MUSCULOSKELETAL: Extremities without clubbing, cyanosis, or edema. NEUROLOGICAL: Awake and alert. Cranial nerves II through XII intact. A/P Assessment and Plan Very pleasant 61-year-old female, presenting with 3 days of epigastric pain, black stools, and feeling lightheaded. Hemoccult positive in ED. Status post transfusion 1 unit packed red blood cells with symptom resolution and appropriate hemoglobin increase. Discharge Planning Pending EGD/colonoscopy Problem List: (1) GI bleed Status: Acute Plan: Patient with partial EGD performed that was terminated early secondary to patient desaturation. Nonbleeding moderate sized ulcer found in the gastric antrum. Patient status post transfusion of 1 unit packed red blood cells with appropriate response and resolution of clinical symptoms. Protonix IV - transition to PO pantoprazole 40 mg PO daily. CBC showed slight decrease in H&H 9.4 --> 8.4. Gastroenterology consulted, cleared for d/c with outpatient colonoscopy in 2-3 days. -Regular diet. (2) Hypertension Status: Acute Plan: Patient with history of hypertension, home medications of lisinopril and amlodipine. Currently normotensive. Holding home medication at this time. (3) Nutrition, metabolism, and development symptoms Status: Acute Plan: Nutrition: Clear liquid diet Electrolytes: Replete when necessary Fluids: NS at 100 cc/hour; d/c 12/07. DVT prophylaxis: SCDs, chemical prophylaxis not indicated secondary to GI bleed wdw Dr. Lux. Problem Qualifiers (1) GI bleed: Qualified Code: K92.2 - Gastrointestinal hemorrhage, unspecified gastrointestinal hemorrhage type Deacon Jolley MD R2 Dec 07, 2016 09:57
[2016-12-07 11:53] VITALS: BP 163/69; PULSE 87; RESP 17; TEMP 97.1; O2SAT 100
[2016-12-07 15:10] VITALS: BP 139/82; PULSE 86; RESP 17; TEMP 97.3; O2SAT 97
[2016-12-07 17:05] LABS: HEMATOCRIT 26.8 % (35.0-46.0); REVIEW FLAG FINAL
[2016-12-08] MEDS ORDERED: PANTOPRAZOLE SOD 40 MG DELAYED RELEASE TAB PO SCH (09:00)
--- NOTE | 2016-12-09 09:12 | HHI.DS ---
Discharge Summary Admission Date Dec 05, 2016 at 09:19 Admitting Diagnosis GI bleed, abdominal pain, leukocytosis (1) GI bleed Plan: Patient with partial EGD performed that was terminated early secondary to patient desaturation. Nonbleeding moderate sized ulcer found in the gastric antrum. Patient status post transfusion of 1 unit packed red blood cells with appropriate response and resolution of clinical symptoms. Protonix IV - transition to PO pantoprazole 40 mg PO daily. CBC showed slight decrease in H&H 9.4 --> 8.4. Gastroenterology consulted, cleared for d/c with outpatient colonoscopy in 2-3 days. -Regular diet. (2) Hypertension Plan: Patient with history of hypertension, home medications of lisinopril and amlodipine. Currently normotensive. Holding home medication at this time. (3) Nutrition, metabolism, and development symptoms Plan: Nutrition: Clear liquid diet Electrolytes: Replete when necessary Fluids: NS at 100 cc/hour; d/c 12/07. DVT prophylaxis: SCDs, chemical prophylaxis not indicated secondary to GI bleed wdw Dr. Lux. Brief History Patient is a pleasant 61-year-old female, with a past medical history of hypertension and peptic ulcer disease, presenting with generalized weakness and fatigue for 1 week. HPI: Approximately 1 week ago, she experienced generalized weakness. 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 On 12/05, at 4 AM she called her daughter because she was feeling lightheaded and extremely dizzy. She also notices over the past 3 days, that she has been having black, tarry stools, that are formed. She also feels nauseous, but denies any vomiting. She denies bright red blood in her stool. She denies any chest pain currently. She denies any shortness of breath. She has not fallen at home. She has been taking Aleve, large amounts every day ( she bought a big bottle at [employer] and takes them throughout the day) for arthritic pain. She has a history of peptic ulcer disease, approximately 40 years ago, she did have an upper GI bleed. Currently, she is not having any abdominal pain. She denies any fevers or chills. She is not on any blood thinners. CBC/BMP: 12/07/16 1650 12/07/16 0617 Significant Findings Laboratory Tests Test 12/06/16 12/07/16 12/07/16 12:12 06:17 16:50 White Blood Count 11.5 TH/MM3 (4.0-11.0) Red Blood Count 3.33 MIL/MM3 2.89 MIL/MM3 (4.00-5.30) (4.00-5.30) Hemoglobin 9.4 GM/DL 8.4 GM/DL 8.8 GM/DL (11.6-15.3) (11.6-15.3) (11.6-15.3) Hematocrit 28.4 % 24.7 % 26.8 % (35.0-46.0) (35.0-46.0) (35.0-46.0) Neutrophils # (Auto) 7.9 TH/MM3 (1.8-7.7) Sodium Level 146 MEQ/L (136-145) Chloride Level 110 MEQ/L 109 MEQ/L (98-107) (98-107) Estimat Glomerular Filtration 70 ML/MIN (>89) 77 ML/MIN (>89) Rate Calcium Level 8.3 MG/DL 7.8 MG/DL (8.5-10.1) (8.5-10.1) Alkaline Phosphatase 41 U/L (45-117) PE at Discharge GENERAL: REsting comfortably. Better color/perfusion in face when compared to admission. SKIN: No rashes, ecchymoses or lesions. Cool and dry. Small erythematous nodule on LUQ of abdomen, not draining. HEAD: Atraumatic. Normocephalic. No temporal or scalp tenderness. EYES: Pupils equal round and reactive. +Scleral palor ENT: Nose without bleeding, purulent drainage or septal hematoma. Throat without erythema, tonsillar hypertrophy or exudate. Uvula midline. Airway patent. NECK: Trachea midline. No JVD or lymphadenopathy. Supple, nontender, no meningeal signs. CARDIOVASCULAR: Regular rate and rhythm without murmurs, gallops, or rubs. RESPIRATORY: Clear to auscultation. Breath sounds equal bilaterally. No wheezes , rales, or rhonchi. GASTROINTESTINAL: Abdomen soft, non-tender, slightly distended. No guarding. MUSCULOSKELETAL: Extremities without clubbing, cyanosis, or edema. NEUROLOGICAL: Awake and alert. Cranial nerves II through XII intact. Hospital Course Mrs. Aviles was admitted to the hospital 12/05/2016, for an upper GI bleed. Her hemoglobin at that time was 9.7. 6 hours after admission her hemoglobin dropped to 7.4. She received 1 unit of packed red blood cells. An EGD on the day of admission showed a nonbleeding ulcer in the antrum of the stomach. The procedure was stopped early due to hypoxemia. She was started on a Protonix drip, and did well after 1 unit of packed red blood cells. On day 3 of hospitalization, she was ambulating without fatigue or lightheadedness. An echocardiogram (performed 2/2 shortness of breath and lower extremity swelling) showed normal left ventricular systolic function with an EF of 55-6%. No regional wall motion abnormalities are present. She had no signs of continued GI bleeding (H&H stable, VS at goal), and was discharged home with a follow-up with GI for repeat colonoscopy and EGD, and PO protonix. She was discharged in stable condition. Pt Condition on Discharge: Good Discharge Disposition: Discharge Home Discharge Instructions DIET: Follow Instructions for: As Tolerated, No Restrictions Activities you can perform: Regular-No Restrictions Deacon Jolley MD R2 Dec 09, 2016 09:12
[2016-12-16] MEDS ORDERED: LISI-515 PO (15:04)
[2016-12-17] MEDS ORDERED: DICL50TA PO (10:19)
[2016-12-17] MEDS ORDERED: CALC1TAB12 PO (10:19)
== END 2016-12-07 18:26 | disposition home or self-care (01) | DRG 378 ==
LOC: NEPE 06:28 → NEDA 09:19 → N06B 10:51
PROVIDERS: ADMIT Family Medicine; ATTEND Family Medicine
PROC: 30233N1 Transfusion of Nonautologous Red Blood Cells into Peripheral Vein, Percutaneous Approach (ICD-10-PCS; 2016-12-05)
PROC: 0DJ08ZZ Inspection of Upper Intestinal Tract, Via Natural or Artificial Opening Endoscopic (ICD-10-PCS; principal; 2016-12-05 12:10)
DX: K92.1 Melena (principal); D62 Acute posthemorrhagic anemia; K25.9 Gastric ulcer, unspecified as acute or chronic, without hemorrhage or perforation; I10 Essential (primary) hypertension; M19.90 Unspecified osteoarthritis, unspecified site; Z23 Encounter for immunization; R73.9 Hyperglycemia, unspecified; Z87.11 Personal history of peptic ulcer disease
CPT/HCPCS: 36430; 71010; 76937; 80048; 80053; 81001; 83690; 85014; 85018; 85025; 85610; 86850; 86900; 86901; 86920; 90732; 93005; 93306; 94640; 94664; 96361; 96374; 96375; C9113; J1940; J2270; J2405; J7030; P9016

== ENCOUNTER → 2016-12-17 | Outpatient (CLI) | payer SELFPAY ==
[~2016-12-17] VITALS: Ht 160 cm; Wt 73.8 kg
[~2016-12-17] MED LIST: *RESP: ALBUTEROL 2.5 MG/3 ML NEB (PRN) PERIprocedural Use ONLY NEB ONE; AMLO10TA2 PO; CALC1TAB12 PO; CHLORHEXIDINE GLUCONATE 2 % 1 PACK (2 CLOTHS) TOPICAL PRN; DICL50TA PO; DO NOT ADM ANY ANTICOAGULANT DRUGS PRN; FLUMAZENIL 0.5 MG/5 ML VIAL IV PRN; INSULIN HUMAN REGULAR 1,000 UNITS/10 ML VIAL SQ PRN; LACTATED RINGER'S 1000 ML IV PRN; LISI-515 PO; METOPROLOL TARTRATE 25 MG TAB PO PRN; NALOXONE HCL 0.4 MG/ML AMP IV PRN; PANT40TA3 PO; POVIDONE IODINE 5% (ANTISEPSIS KIT) 4 APPLICATIONS EACH NARE PRN; PROPOFOL 200 MG/20 ML AMP IV ONE; SODIUM CHLORID 0.9% 500 ML IV PRN; SUGAMMADEX SODIUM 200 MG/2 ML VIAL IV PUSH ONE
[2016-12-17 10:32] VITALS: BP 135/66; PULSE 63; RESP 16; TEMP 98.6; O2SAT 98
--- NOTE | 2016-12-17 13:47 | HHI.GIFU ---
Subjective Remarks Immediate postop note: EGD with biopsy and colonoscopy Indication: Gastric ulcer, GI bleed Meds: GET anesthesia Hx: patient had laryngospasm during recent EGD and procedure was terminated PCP Anthony Khoury Findings: Esophagus normal Stomach: healing gastric ulcer at 9;00 in prepyloric antrum. Bx x 2 duodenum: normal Cecum: normal Colon scattered diverticulosis No polyps seen. Rectum Normal Complication: IV infiltrated at start of procedure and paralytic agent infiltrated in subcutaneous tissue. Impression: Gastric ulcer, Diverticulosis minor complication of IV infiltration of paralytic agent. Plan: Followup in GI office in 2 weeks. continue PPI daily Observe in PACU 4 hours per anesthesia order to allow Subq agent to dissipate, then discharge home. Family informed regarding the IV infiltration. Family will observe carefully when she is discharged home. Objective Vitals I&O Vital Signs Date Time Temp Pulse Resp B/P Pulse Ox O2 Delivery O2 Flow Rate FiO2 12/17/16 10:32 98.6 63 16 135/66 98 Physical Exam HEENT: Pupils round and reactive to light; normocephalic; atraumatic; no jaundice. Throat is clear. NECK: Neck is supple, no JVD, no lymphadenopathy. CHEST: Chest is clear to auscultation and percussion. CARDIAC: Regular rate and rhythm with no murmur gallop or rubs. ABDOMEN: Soft, nondistended, nontender; no hepatosplenomegaly; bowel sounds are present in all four quadrants. EXTREMITIES: No clubbing, cyanosis, or edema. SKIN: Normal; no rash; no jaundice. AWS SOFTWARE DEVELOPMENT ENGINEER: No focal deficits; alert and oriented times three. Assessment and Plan Plan Imp: Gastric ulcer, Diverticulosis Plan: See above. Followup in office in 2 weeks. Ant Parks MD Dec 17, 2016 13:47
[2016-12-17 17:00] VITALS: BP 126/67; PULSE 76; RESP 17; O2SAT 99
--- NOTE | 2016-12-18 11:54 | MP ---
cc: MAGNUS FLOREZ M.D., JULIAN SULLIVAN,ANT Moncada MD DATE OF SURGERY 12/17/2016 PROCEDURE 1. Esophagogastroduodenoscopy with biopsy. 1. Colonoscopy. INDICATIONS Gastric ulcer and GI bleed. REFERRING PHYSICIAN Dr. Anthony Khoury. PROCEDURE After informed consent was obtained, the patient was placed in the supine position. She was administered general endotracheal anesthesia by the Anesthesia Department. After adequate sedation was achieved, the patient was turned onto her left side. The Pentax video scope was inserted in the oropharynx and advanced through the esophagus, stomach and duodenum. It was then slowly withdrawn, examining the mucosal surfaces carefully. Two biopsies were obtained of a healing gastric ulcer. The scope was retroflexed in the fundus and cardia. The scope was then straightened and pulled through the esophagus and the procedure was terminated. A colonoscopy was then performed. Digital rectal examination was normal. The Pentax video scope was inserted in the anal canal and advanced through the colon, reaching the base of the cecum. It was then slowly withdrawn, examining the mucosal services carefully. Retroflexed exam was performed in the rectum. The scope was then straightened and pulled through the anal canal. The procedure was terminated. She tolerated the procedure well and was returned to the recovery area in stable condition. FINDINGS 1. The esophagus appeared normal. 2. In the stomach there was a healing gastric ulcer at the 9 o'clock position in the prepyloric antrum. Two biopsies were obtained. 3. The duodenum appeared normal. 4. The cecum was normal. 5. In the colon there were scattered diverticula. 6. No polyps were seen. 7. The rectum was normal. IMPRESSION 1. Gastric ulcer and diverticulosis. 2. Minor complication of IV infiltration with paralytic agent. During the procedure the IV infiltrated during induction and the paralytic agent was infiltrated into the subcutaneous tissue. A new IV was started and the procedure went as planned. After consultation with the anesthesiologist, it was decided that the patient remain in the PACU for four hours to allow the subcutaneously injected paralytic agent to dissipate prior to discharging the patient home. She will be reassessed at four hours. PLAN 1. The patient will follow up in the GI office in two wekes. 2. She should continue proton pump inhibitor daily. 3. Observe in PACU for 4 hours per Anesthesia order prior to discharge home. Ant Parks MD HHS/SSB /1:55 PM /11:44 AM
== END ==
LOC: HEND 09:16
PROVIDERS: ATTEND Internal Medicine Gastroenterology
DX: D64.9 Anemia, unspecified (principal); K25.9 Gastric ulcer, unspecified as acute or chronic, without hemorrhage or perforation; K57.90 Diverticulosis of intestine, part unspecified, without perforation or abscess without bleeding; K92.1 Melena
CPT/HCPCS: 00740; 00810; 43239; 45378; 88305; 88312; 94150; 94664; J7120; J7613